=== PATIENT | male | born 1970 | race Caucasian/White ===

== ENCOUNTER 2020-09-14 14:23 | Outpatient (RCR) | payer MEDICAID, SELFPAY | END 2020-11-27 23:59 | LOC: IMMUN 14:23 | PROVIDERS: PCP Family Medicine; Referring Provider Family Medicine; Visit Provider Family Medicine | DX: Z23 Encounter for immunization (principal) | CPT/HCPCS: 0001A; 0002A; 91300 ==

== ENCOUNTER → 2021-03-02 07:35 | Outpatient (CLI) | payer SELFPAY | PROVIDERS: PCP Family Medicine; Referring Provider Physician Assistant Surgical; Visit Provider Physician Assistant Surgical | DX: Z11.52 Encounter for screening for COVID-19 (principal) | CPT/HCPCS: 87635; U0005; U0003 ==

== ENCOUNTER 2021-08-27 10:18 | Outpatient (CLI) | payer OTHER, SELFPAY ==
[2021-08-27 12:23] LABS: Absolute Lymphocyte Count 1.46 X10^3/uL (0.83-4.51); Absolute Neutrophil Count 3.2 X10^3/uL (2.0-7.7); Basophil# 0.04 X10^3/uL; Basophil% 0.8 % (0-1); Eosinophil# 0.05 X10^3/uL; Hematocrit 44.6 % (40-54); Hemoglobin 15.3 g/dL (13.0-16.5); Lymphocyte # 1.46 X10^3/ul (0.83-4.51); Lymphocyte % 28.1 % (19-41); Mean Corp Hgb Conc 34.3 g/dL (32-36); Mean Corpuscular Volume 90.3 fL (80-94); Monocyte% 7.7 % (0-10); NRBC Flagged by Analyzer 0 % (0-5); Neutrophil # 3.23 X10^3/uL (2.7-7.7); Platelet Count 194 K/mm3 (150-450); RBC Distribution Width CV 12.2 % (11.6-14.6); RBC Distribution Width SD 39.9 fl (35.1-43.9); Red Blood Count 4.94 M/mm3 (4.6-6.2); White Blood Count 5.2 K/mm3 (4.4-11.0)
[2021-08-27 12:39] LABS: AST(SGOT) 22 U/L (15-37); Alanine Aminotransfer ALT/SGPT 27 U/L (16-61); Albumin, Serum 3.7 g/dL (3.2-5.0); Alkaline Phosphatase 71 U/L (45-117); Anion Gap 1 (5-15); BUN 20 mg/dL (7-18); Calcium,Total 9.5 mg/dL (8.5-10.1); Chloride 104 mmol/L (98-107); Creatinine, Serum 1.05 mg/dL (0.70-1.30); EST Glomerular Filtration Rate 79 mL/min (>60); Est Glom Filt Rate - Afr Amer 96 mL/min (>60); Globulin 3.9 g/dL (2.2-4.2); Glucose 102 mg/dL (74-106); Potassium 4.3 mmol/L (3.5-5.1); Protein, Total 7.6 g/dL (6.4-8.2); Sodium Level 138 mmol/L (136-145)
[2021-08-27 13:14] LABS: Hepatitis B Surface Antibody Non-Reactive; Hepatitis B Surface Antigen Non-Reactive (Nonreactive); Hepatitis C Antibody Non-Reactive (Nonreactive)
[2021-08-30 03:07] LABS: QNTFERON TB Mitogen Value > 10.00 IU/mL (.); QNTFERON TB Nil Value 0.04 IU/mL (.); QNTFERON TB1+ Ag Value 0.04 IU/mL (.); QNTFERON TB2+ Ag Value 0.05 IU/mL (.)
[2021-08-30 13:50] LABS: Hepatitis B Core Ab Total Negative (Negative); QNTIFERON TB Positive Criteria Negative (Negative)
== END 2021-08-27 23:59 | disposition home or self-care (01) ==
LOC: MTLAB 10:21
PROVIDERS: Referring Provider Dermatology; Visit Provider Dermatology
DX: L40.0 Psoriasis vulgaris (principal); C44.91 Basal cell carcinoma of skin, unspecified; Z79.899 Other long term (current) drug therapy
CPT/HCPCS: 36415; 80048; 80076; 85025; 86480; 86704; 86706; 86803; 87340

== ENCOUNTER → 2022-11-27 | Outpatient (CLI) | payer OTHER, SELFPAY ==
--- NOTE | 2022-11-27 09:23 | RAD_ITS ---
STUDY: X-RAY CHEST REASON FOR EXAM: Male, 52 years old. Right anterior chest pain/rib pain. TECHNIQUE: PA and lateral views of the chest. COMPARISON: None. FINDINGS: Mild increased markings in the lower aspect of the right lung base. Atelectasis and/or early infiltrate should be ruled out. Follow-up recommended. There is no demonstrated pleural abnormality. Normal size heart. Normal mediastinum and roosevelt. Normal visualized pulmonary arteries. Normal visualized aortic arch and descending thoracic aorta. Normal visualized thoracic spine. Normal visualized ribs, clavicles, and shoulders. There is no demonstrated abnormality of the visualized soft tissue structures of the upper abdomen. RAD/Chest PA and Lateral IMPRESSION: Mild increased markings at the right lung base. Follow-up recommended. Electronically Signed: Tushar Canada MD at 13:00 EDT ,
[2022-11-27 12:25] LABS: Absolute Lymphocyte Count 1.48 X10^3/uL (0.83-4.51); Basophil# 0.08 X10^3/uL; Basophil% 1.5 % (0-1); Eosinophil# 0.14 X10^3/uL; Eosinophils% 2.7 % (0-5); Hematocrit 41.9 % (40-54); Hemoglobin 13.9 g/dL (13.0-16.5); Lymphocyte # 1.48 X10^3/ul (0.83-4.51); Lymphocyte % 28.5 % (19-41); Mean Corp Hgb Conc 33.2 g/dL (32-36); Mean Corpuscular Hgb 30.2 pg (27.0-32.0); Mean Corpuscular Volume 90.9 fL (80-94); Mean Platelet Vol. 9.9 fl (6.2-12.0); Monocyte# 0.47 X10^3/uL; Monocyte% 9.1 % (0-10); NRBC Flagged by Analyzer 0 % (0-5); Neutrophil # 3.01 X10^3/uL (2.7-7.7); Platelet Count 266 K/mm3 (150-450); RBC Distribution Width CV 12.1 % (11.6-14.6); RBC Distribution Width SD 40.1 fl (35.1-43.9); Red Blood Count 4.61 M/mm3 (4.6-6.2); White Blood Count 5.2 K/mm3 (4.4-11.0)
[2022-11-27 12:45] LABS: ALB/GLOB Ratio 0.8 RATIO (0.9-2.4); AST(SGOT) 27 U/L (15-37); Alanine Aminotransfer ALT/SGPT 36 U/L (16-61); Albumin, Serum 3.4 g/dL (3.2-5.0); Alkaline Phosphatase 73 U/L (45-117); Anion Gap 6 (5-15); BUN 18 mg/dL (7-18); BUN/Creat Ratio 16.7 RATIO (10-20); Calcium,Total 9.4 mg/dL (8.5-10.1); Chloride 103 mmol/L (98-107); Cholesterol 243 mg/dL (200); Creatinine, Serum 1.08 mg/dL (0.70-1.30); EST Glomerular Filtration Rate 76 mL/min (>60); Est Glom Filt Rate - Afr Amer 92 mL/min (>60); Globulin 4.3 g/dL (2.2-4.2); Glucose 98 mg/dL (74-106); High Density Lipoprotein 67 mg/dL; Potassium 4.2 mmol/L (3.5-5.1); Protein, Total 7.7 g/dL (6.4-8.2); Sodium Level 138 mmol/L (136-145); Triglycerides 56 mg/dL; Very Low Density Lipoprotein 11 mg/dL (5-40)
== END | disposition home or self-care (01) ==
PROVIDERS: PCP Family Medicine; Referring Provider Family Medicine; Visit Provider Family Medicine
DX: Z00.00 Encounter for general adult medical examination without abnormal findings (principal); Z13.220 Encounter for screening for lipoid disorders; Z13.1 Encounter for screening for diabetes mellitus; R07.81 Pleurodynia
CPT/HCPCS: 36415; 71046; 80053; 80061; 85025

== ENCOUNTER → 2022-12-09 | Outpatient (CLI) | payer OTHER, SELFPAY ==
[2022-12-09 12:43] LABS: HIV - WCH Non-Reactive (Nonreactive); Hepatitis C Antibody Non-Reactive (Nonreactive)
[2022-12-10 22:06] LABS: Chlamydia By Nucleic Acid AMP Negative (Negative); Gonococcus By Nucleic Acid AMP Negative (Negative)
== END | disposition home or self-care (01) ==
LOC: MFPLAB 08:38
PROVIDERS: PCP Family Medicine; Visit Provider Family Medicine
DX: Z11.59 Encounter for screening for other viral diseases (principal); Z20.2 Contact with and (suspected) exposure to infections with a predominantly sexual mode of transmission; Z11.4 Encounter for screening for human immunodeficiency virus [HIV]
CPT/HCPCS: 36415; 86703; 86803; 87491; 87591

== ENCOUNTER 2023-05-21 15:04 | Outpatient (RCR) | payer OTHER, SELFPAY ==
--- NOTE | 2023-05-21 15:51 | HP.PTEVAL_ITS ---
Patient's Visit Information Visit Information Visit Information: JOHNNIE MCNAMARA is a 52 year old M referred to Physical Therapy by Dr. Juan C Moody DO with a diagnosis of R trochanteric bursitis , spondylosis. Date of Evaluation: 05/21/23 Physical Therapist: Jayant Whitaker, DPT, OCS, CSCS Visit Plan Frequency: 1x/Week Duration: 4-6 Weeks Plan: weekly as needed for progression of hip strength stretching and LB ex. Pt will do current ex via HEP and f/u two weeks for progression to weight bearing hip ex if doing better adn consider LB ROM and core strength exercises if desired. Will call prior if pain does not continue to improve for possible US, STM Subjective Subjective: R hip hurts but is structurally sound. Started hurting 5 months ago getting out of truck. Stiff and sore when sits too much then works out, Tender in that area. 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 Referees basketball without a problem(back hurts a little with lots of running). Stiff after sitting in car. No trouble sleeping but cannot lie on R side. L side is fine. Basic ADLs are getting done. No time to workout and has not been for a year. Pain R hip: Pain Intensity (Out of 10): 0 Pain Intensity Range: 0 and 8 Objective Objective: Walks I, transfers I, steps without pain today. Tender R trochanteric bursa area. LB AROM WFL and no pain but a little stiff posteriorly. LE AROM WFL, tightness obvious in ITB and piriformis reflexes 2/3 patella and achilles Sensation wNL to gross light touch. strength hip abd and ext B 3+ and flexion 4-, some pain wiwth abduction. knee and ankle strength 4/5 without pain. - JEAN MARIE, - FADDIR, - slump and SLR today. Balance/Special Test Scores Lower Extremity Functional Score: 75 Goals Goal 1:: sit in truck adn get out without increased pain Goal Time Frame: 4-6 Weeks Goal 2:: Pt feel pain is 90% better in hipand 1/10 at worst Goal Time Frame: 4-6 Weeks Goal 3:: I appropriate HEp to minimze future back and hip problems as desired Goal Time Frame: 4-6 Weeks Rehabilitation Potential Physical Therapy Diagnosis: inflammation in bursa are causing pain and limiting comfort with fucntion/sitting Rehabilitation Potential: Good Anticipated Interventions Patient/Client Instruction: Educate patient on: Condition and Plan of Care For the Purpose of:: To decrease pain, To decrease swelling/inflammation, To improve nutrient delivery to tissue, To improve muscle performance and motor function and To increase tolerance to activity/condition/position Therapeutic Exercise to Include: Strength training, Postural training, Flexibilty training, Passive ROM and Active ROM For the Purpose of:: To decrease pain, To decrease swelling/inflammation, To increase ROM, To improve muscle performance and motor function, To improve ability of physical actions for home/community/work/leisure and To improve gait and locomotor functions Text: Thank you for the opportunity to evaluate your patient. For Medicare and Medicare HMO plans, please review the plan of care and approve it. It will need to be FAXED BACK to us at [phone] for Medicare purposes. For Medicare only, by signing this I certify the plan of care. Please let me know if there are questions or concerns regarding this plan of care. Physician Signatu re: Date:
--- NOTE | 2023-07-06 08:04 | HP.PT.NRP ---
Patient Information Patient Information: JOHNNIE MCNAMARA was seen in my office for initial evaluation on 05/21/23. The following Plan of Care was established for this patient: POC Established Initial Frequency: 1x/Week Initial Duration: 4-6 Weeks Anticipated Interventions Patient/Client Instruction: Educate patient on: Condition and Plan of Care For the Purpose of:: To decrease pain, To decrease swelling/inflammation, To improve nutrient delivery to tissue, To improve muscle performance and motor function and To increase tolerance to activity/condition/position Therapeutic Exercise to Include: Strength training, Postural training, Flexibilty training, Passive ROM and Active ROM For the Purpose of:: To decrease pain, To decrease swelling/inflammation, To increase ROM, To improve muscle performance and motor function, To improve ability of physical actions for home/community/work/leisure and To improve gait and locomotor functions Last Seen Last Seen: This patient was last seen in our office 05/21/23. Pertinent comments regarding their Physical therapy will appear below: Pt seen for IE and POC established, was to f/u weekly for progressions but has not scheduled or attended. At this point, it has been over 6 weeks and I will discontinue due to nonattendance. At this point I will be discontinuing this patient from physical therapy. I would be happy to see this patient again in the future if found appropriate by the physician. Thank you! Jayant Whitaker, DPT, OCS, CSCS Balance/Gait/Functional tests Balance/Special Test Scores Lower Extremity Functional Score: 75
== END 2023-05-21 19:00 | disposition home or self-care (01) ==
LOC: PT 15:04
PROVIDERS: PCP Family Medicine; Referring Provider Orthopaedic Surgery; Visit Provider Orthopaedic Surgery
DX: M70.61 Trochanteric bursitis, right hip (principal); M47.816 Spondylosis without myelopathy or radiculopathy, lumbar region
CPT/HCPCS: 97110; 97161

== ENCOUNTER → 2023-06-11 | Outpatient (CLI) | payer OTHER, SELFPAY ==
[2023-06-16 12:07] LABS: Hepatitis B Core Ab Total Negative (Negative); QNTFERON TB Mitogen Value > 10.00 IU/mL (.); QNTFERON TB Nil Value 0 IU/mL (.); QNTFERON TB1+ Ag Value 0.01 IU/mL (.); QNTFERON TB2+ Ag Value 0 IU/mL (.); QNTIFERON TB Positive Criteria Negative (Negative)
== END | disposition home or self-care (01) ==
PROVIDERS: PCP Family Medicine; Referring Provider Physician Assistant Medical; Visit Provider Physician Assistant Medical
DX: L40.0 Psoriasis vulgaris (principal)
CPT/HCPCS: 36415; 86480; 86704

== ENCOUNTER 2023-11-30 08:13 | Day surgery (SDC) | payer OTHER, SELFPAY ==
[2023-11-30] VITALS (7 sets, daily range): BP systolic 109–125; BP diastolic 76–95; PULSE 58–70; RESP 16–17; TEMP 36–36.4; O2SAT 98–100; BMI 22.1
[2023-11-30] MEDS: Lactated Ringers 1,000 ML 15 ML IV (08:29)
--- NOTE | 2023-11-30 09:30 | COLBX_PTH ---
PATIENT: JOHNNIE MCNAMARA LOC: EN U#:[id number] AGE/SX: 53/M ROOM: RE11/30/[address]: Dr. Rajesh Colón DO : 1970 BED: DIS: 11/30/2023 SPEC #: [id number] RECD: 11/30/23 11:34 STATUS: NICK LUNA #: [id number] BARBARA: 11/30/23 09:[address]: Rajesh Colón DEPT: SURGICAL PATHOLOGY RECD BY: Moni Shearer ENTERED: 11/30/23 13:06 SP TYPE: COLON BX OTHR DR: Espnioza Encarnacion MD Tissues: Cecum, NOS Procedures: Surgery Specimen Level IV HEADER OPERATION: Colonoscopy biopsy PRE-OP DIAGNOSIS: Encounter for screening for malignant neoplasm of colon TISSUE SUBMITTED: Cecal polyp biopsy MICROSCOPIC DIAGNOSIS Cecal polyp, biopsy: A fragment of colonic mucosa, no pathologic diagnosis. TU/ 12/01/2023 MICROSCOPIC DESCRIPTION Slides are reviewed. GROSS DESCRIPTION Received in fixative is one container labeled with the patient's name and designated Cecal polyp. The specimen consists of one irregular fragment of light smith soft tissue that measures 0.6 x 0.4 x 0.1 cm. The specimen is totally submitted in one cassette. TU/ 11/30/2023 TC:4 CPT:00001
--- NOTE | 2023-11-30 09:39 | HP.PCM_ITS ---
[facility] - General General Date of Admission: 11/30/23 Date of Service: 11/30/23 Chief Complaint: Screening colonoscopy [facility] Narrative JOHNNIE MCNAMARA, is a 53 M who presents today for screening colonoscopy. He has not had a colonoscopy in the past. He is not having abdominal pain. Does not have any cramping. He does not have any chest pain or shortness of breath. She also denies any change in bowel bladder habits. Overall she is in very good health. [facility] Medical History (Updated 11/25/23 @ 09:54 by Kelley Harris) Loss of hearing Wears contact lenses Psoriasis Osteoarthritis of right knee Hernia Diarrhea Home Medications ?Medication ?Instructions ?Recorded ?Last Taken ?Type NK 11/25/23 Unknown History Allergy/AdvReac Type Severity Reaction Status Date / Time amoxicillin AdvReac stomach Verified 11/30/23 08:27 upset Family History Other Heart disease Surgical History Hx of right inguinal hernia repair Hx of vasectomy History of shoulder surgery History of knee surgery Social History (Updated 10/21/23 @ 11:32 by Marla Kaur) household members: spouse and children current occupational status: employed current occupation: Self Smoking Status: Never smoker alcohol intake: current alcohol intake frequency: a few times a week Alcohol type: beer details: Occasional alcohol substance use type: does not use ROS Review of Systems ROS Unobtainable: other Constitutional Constitutional: Denies fatigue, fever(s), poor appetite, weight gain or weight loss ENT HEENT: Denies mouth lesions Cardiovascular Cardiovascular: Denies abdominal bloating, abdominal edema or abdominal pain Respiratory/Chest Respiratory/Chest: Denies change in mental status, change in phlegm color, chest congestion or chest tightness Gastrointestinal Gastrointestinal: Denies belching, bloating, change in bowel habits, change in stool character, chewing difficulty, coffee ground emesis, constipation, cramping, diarrhea, dyspepsia, dysphagia, early satiety, excessive flatus, fecal incontinence, heartburn, hematemesis, hematochezia, hemorrhoids, loose stools, melena, nausea, odynophagia, rectal bleeding, tenesmus, vomiting or weight changes Genitourinary Genitourinary: Denies abdominal discomfort, burning urination or itching Musculoskeletal Musculoskeletal: Reports as per HPI; Denies muscle weakness or myalgias Integumentary Integumentary: Denies jaundice Neurologic Neurologic: Denies lack of coordination or weakness Psychiatric Psychiatric: Denies confusion, depression, memory loss, mood swings, paranoia or suicidal ideation Endocrine Endocrinology: Denies systems reviewed and no addt'l complaints, except as documented Hematologic/Lymphatic Hematologic/Lymphatic: Denies anemia, easy bleeding, easy bruising or lymphadenopathy Allergic/Immunologic Allergic/Immunologic: Denies systems reviewed and no addt'l complaints, except as documented Vital Signs Vital Signs Vital Signs: 11/30/23 08:27 11/30/23 08:27 Temperature 97.5 F L Temperature Source Temporal Pulse Rate 64 Respiratory Rate 16 Respiratory Pattern Normal Blood Pressure 125/95 H Blood Pressure Mean 105 Blood Pressure Source Monitor Blood Pressure Position Semi-Fowlers Blood Pressure Location Left Arm Pulse Ox 98 Oxygen Delivery Method Room Air Weight Weight: 163 lb 2.273 oz Body Mass Index (BMI) 22.1 Assessment & Plan Assessment/Plan (1) Encounter for screening for malignant neoplasm of colon: PLAN: He was explained alternatives, risk, benefits including not withstanding bleeding, infection, sepsis, perforation, need for emergent surgery . He will have an ASA of 3.
--- NOTE | 2023-11-30 10:17 | OP.CCLET_ITS ---
11/30/2023 Espinoza Encarnacion Md Re : Colonoscopy procedure for Sp Devi Vikir Shashank This procedure was performed on Thursday, November 30, 2023. My impressions and recommendations are as follows: Impressions : - One 3 mm polyp in the cecum, removed with a cold biopsy forceps. Resected and retrieved. - The examination was otherwise normal on direct and retroflexion views. Recommendations : - Discharge patient to home. - Resume previous diet. - Continue present medications. - Await pathology results. - Repeat colonoscopy in 5 years for surveillance. My findings are described in the full procedure note, which is enclosed. If I can be of further assistance, please feel free to contact me at . Sincerely, Rajesh Colón, 11/30/2023 10:16:23 AM This report has been signed electronically.
--- NOTE | 2023-11-30 10:17 | OP.COLON_ITS ---
Patient Name: Sp Devi Procedure Date: 11/30/2023 9:41 AM Date of : 1970 Age: 53 Procedure: Colonoscopy Indications: Screening for colorectal malignant neoplasm Providers: Rajesh Colón DO Referring MD: Espinoza Encarnacion Md Medicines: Monitored Anesthesia Care Patient Profile: This is a 53 year old male. Refer to note in patient chart for documentation of history and physical. Last Colonoscopy: none. The patient's first colonoscopy is today. Complications: No immediate complications. Procedure: Pre-Anesthesia Assessment: - Prior to the procedure, a History and Physical was performed, and patient medications and allergies were reviewed. The patient is competent. The risks and benefits of the procedure and the sedation options and risks were discussed with the patient. All questions were answered and informed consent was obtained. Patient identification and proposed procedure were verified by the physician in the pre-procedure area. Mental Status Examination: alert and oriented. Airway Examination: normal oropharyngeal airway and neck mobility. Respiratory Examination: clear to auscultation. CV Examination: normal. Prophylactic Antibiotics: The patient does not require prophylactic antibiotics. Prior Anticoagulants: The patient has taken no anticoagulant or antiplatelet agents. ASA Grade Assessment: II - A patient with mild systemic disease. After reviewing the risks and benefits, the patient was deemed in satisfactory condition to undergo the procedure. The anesthesia plan was to use monitored anesthesia care (MAC). Immediately prior to administration of medications, the patient was re-assessed for adequacy to receive sedatives. The heart rate, respiratory rate, oxygen saturations, blood pressure, adequacy of pulmonary ventilation, and response to care were monitored throughout the procedure. The physical status of the patient was re-assessed after the procedure. After I obtained informed consent, the scope was passed under direct vision. Throughout the procedure, the patient's blood pressure, pulse, and oxygen saturations were monitored continuously. The Colonoscope was introduced through the anus and advanced to the cecum, identified by appendiceal orifice and ileocecal valve. The colonoscopy was performed without difficulty. The patient tolerated the procedure well. The quality of the bowel preparation was adequate. The terminal ileum, ileocecal valve, appendiceal orifice, and rectum were photographed. Scope In: 9:51:32 AM Scope Withdrawal Time 0 hours 6 minutes 59 seconds Scope Out: 10:03:03 AM Total Procedure Duration Time 0 hours 11 minutes 31 seconds Findings: The perianal and digital rectal examinations were normal. A 3 mm polyp was found in the cecum. The polyp was sessile. The polyp was removed with a cold biopsy forceps. Resection and retrieval were complete. Verification of patient identification for the specimen was done. Estimated blood loss was minimal. The exam was otherwise without abnormality on direct and retroflexion views. Impression: - One 3 mm polyp in the cecum, removed with a cold biopsy forceps. Resected and retrieved. - The examination was otherwise normal on direct and retroflexion views. Recommendation: - Discharge patient to home. - Resume previous diet. - Continue present medications. - Await pathology results. - Repeat colonoscopy in 5 years for surveillance. Procedure Code(s): --- Professional --- 02095, Colonoscopy, flexible; with biopsy, single or multiple CPT copyright 2021 [employer]. All rights reserved. The codes documented in this report are preliminary and upon cream beater review may be revised to meet current compliance requirements. Rajesh Colón DO 11/30/2023 10:16:23 AM This report has been signed electronically. Number of Addenda: 0 Note Initiated On: 11/30/2023 9:41 AM
== END 2023-11-30 10:44 | disposition home or self-care (01) ==
LOC: EN 08:14 → AC 08:15
PROVIDERS: PCP Family Medicine; Referring Provider Family Medicine; Visit Provider Internal Medicine Gastroenterology
PROC: 0DJD8ZZ Inspection of Lower Intestinal Tract, Via Natural or Artificial Opening Endoscopic (ICD-10-PCS; CPT 45378; principal; 2023-11-30 09:25)
DX: Z12.11 Encounter for screening for malignant neoplasm of colon (principal); K63.5 Polyp of colon
CPT/HCPCS: 45380; 88305; J7120; J2405

== ENCOUNTER → 2024-02-04 | Outpatient (CLI) | payer OTHER, SELFPAY ==
--- NOTE | 2024-02-04 10:11 | RAD_ITS ---
STUDY: X-RAY - CERVICAL SPINE REASON FOR EXAM: Male, 53 years old. Neck pain. TECHNIQUE: 5 view(s) of the cervical spine were obtained. COMPARISON: None FINDINGS: Osteopenia. Normal anterior atlantoaxial articulation. Normal odontoid process. Normal cervical lordosis. Diffuse moderate uncovertebral and facet sclerosis. Normal alignment of the vertebral bodies. Intervertebral disc space narrowing at C2-3 and C5-6 and C6-7 with osteophytes most marked at C5-6 and C6-7. Anterior bony neural foraminal encroachment at C5-6 bilaterally. Ossification of the ligamentum nuchae distally. RAD/Cerv Spine 4 or 5 Views IMPRESSION: Osteopenia with moderate lower cervical spondylosis. Electronically Signed: Juan Johnson MD at 12:21 EDT ,
== END | disposition home or self-care (01) ==
PROVIDERS: PCP Family Medicine; Referring Provider Family Medicine; Visit Provider Family Medicine
DX: R20.2 Paresthesia of skin (principal)
CPT/HCPCS: 72050

== ENCOUNTER → 2024-06-30 | Outpatient (CLI) | payer OTHER, SELFPAY ==
--- NOTE | 2024-06-30 06:56 | CT_ITS ---
STUDY: CT ABDOMEN AND PELVIS WITH CONTRAST REASON FOR EXAM: Male, 53 years old. Possible left inguinal hernia. RADIATION DOSAGE (If Supplied By Facility): CTDIvol = ( 14.22 ) mGy, DLP = ( 755.66 ) mGycm TECHNIQUE: Transaxial images were obtained from the dome of the diaphragm to the symphysis pubis without oral contrast. IV 100mL Isovue-370 was administered. Sagittal and coronal images were reconstructed. Individualized dose optimization techniques were used for this CT. COMPARISON: None. FINDINGS: The visualized lung bases are unremarkable. The visualized portions of the heart are within normal limits. Findings suggestive of a 3.6 cm x 3.4 cm hemangioma in the posterior medial aspect of the right lobe liver. Normal gallbladder and extrahepatic biliary system. Normal spleen. Normal pancreas. Normal bilateral adrenal glands. Normal right kidney. Normal left kidney. Normal visualized stomach. Normal small intestine. Normal colon. The appendix is visualized and appears normal. Normal abdominal aorta. Normal inferior vena cava. Normal retroperitoneum. Normal urinary bladder. There is evidence of prior right inguinal hernia repair with a mesh. Small left inguinal hernia containing fat. Normal osseous structures. CT/Abdomen/Pelvis W IV Cont ONLY IMPRESSION: Findings suggestive of a hemangioma in the posterior medial aspect of the right lobe of the liver as described. Small left inguinal hernia containing fat. Prior repair of a right inguinal hernia with a mesh. Electronically Signed: Tushar Canada MD at 15:28 EST ,
== END | disposition home or self-care (01) ==
PROVIDERS: PCP Family Medicine; Referring Provider Family Medicine; Visit Provider Family Medicine
DX: K46.9 Unspecified abdominal hernia without obstruction or gangrene (principal)
CPT/HCPCS: 74177; Q9967

== ENCOUNTER 2024-07-07 08:03 | Outpatient (RCR) | payer OTHER, SELFPAY ==
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
== END 2024-07-07 19:00 | disposition home or self-care (01) ==
LOC: PT 08:03
PROVIDERS: PCP Family Medicine; Referring Provider Student in an Organized Health Care Education/Training Program; Visit Provider Student in an Organized Health Care Education/Training Program
DX: M54.12 Radiculopathy, cervical region (principal)
CPT/HCPCS: 97162; 97530

== ENCOUNTER 2024-08-08 05:55 | Day surgery (SDC) | payer OTHER, SELFPAY ==
--- NOTE | 2024-07-25 07:45 | EKG12_ITS ---
Test Reason : PREOP Blood Pressure : */* mmHG Vent. Rate : 63 BPM Atrial Rate : 63 BPM P-R Int : 170 ms QRS Dur : 88 ms QT Int : 400 ms P-R-T Axes : 60 58 46 degrees QTcB Int : 409 ms Normal sinus rhythm Normal ECG Confirmed by PEGGY COLLINS, KELYL ([id number]), editorial director CHALINO OLVERA ([id number]) on 07/25/2024 10:43:22 AM Referred By: Jose Charlton Confirmed By: KELLY WOODS MD
[2024-08-08] VITALS (12 sets, daily range): BP systolic 116–124; BP diastolic 81–91; PULSE 66–74; RESP 12–20; TEMP 36.1–36.4; O2SAT 95–100; BMI 23.6
[2024-08-08] MEDS: 0.9% Normal Saline (1000mL) 1,000 ML 15 ML IV ×2 (06:35→09:25)
--- NOTE | 2024-08-08 06:42 | PCM.PRE.AN2 ---
ASA Classification* ASA Classification ASA Classification: 2 Assessment & Plan Anesthesia* Anesthesia Assessment Anesthesia Assessment: Discussed sedation and/or anesthesia options, risks, benefits, and alternatives with patient/parents/legal guardian/POA. Questions invited. The patient/parents/legal guardian/POA seems to understand and agrees to proceed with anesthesia plan. Reviewed the physical assessment, medical history, allergy history and patient home medications list prior to surgery/procedure/anesthetic and documented any changes. Performed airway and anesthesia risk assessments. Anesthesia Type Anesthesia Type: General Anesthesia Focused Assessment* Temperature: 97.0 F Pulse Rate: 66 Blood Pressure: 123/85 Respiratory Rate: 12 Pulse Ox: 99 Airway Assessment Mouth opens: >3 cm Mallampati Score: II Focused Labs Anesthesia Preop lab: CBC WBC 5.2 K/mm3 (4.4-11.0) 11/27/22 09:21 11/27/22 RBC 4.61 M/mm3 (4.6-6.2) 11/27/22 09:11/27/22 Hgb 13.9 g/dL (13.0-16.5) 11/27/22 09:21 11/27/22 Hct 41.9 % (40-54) 11/27/22 09:21 11/27/22 Plt Count 266 K/mm3 (150-450) 11/27/22 09:21 11/27/22 CHEMISTRY Potassium 4.2 mmol/L (3.5-5.1) 11/27/22 09:21 11/27/22 Sodium 138 mmol/L (136-145) 11/27/22 09:21 11/27/22 BUN 18 mg/dL (7-18) 11/27/22 09:21 11/27/22 Creatinine 1.08 mg/dL (0.70-1.30) 11/27/22 09:21 11/27/22 Glucose 98 mg/dL (74-106) 11/27/22 09:21 11/27/22 COAG Pre-Assessment Diagnosis/Proposed Procedure Planned Operative Procedure(s): (L) Hernia,Open Inguinal w/ Mesh Anesthesia History Anesthesia History - english and reading instructor: Anesthesia History - english and reading instructor Hx Hospitalization No 07/22/24 11:14 Any Problems With Anesthesia No 07/22/24 11:14 Cholinesterase deficiency No 07/22/24 11:14 You/Your Family Experience No 07/22/24 11:14 fever (hyperthermia) with Relationship Recent Exposure to Contagious No 08/08/24 06:27 Disease Does patient have nerve No 07/22/24 11:14 stimulator Patient instructed to have device shut off --Does patient have Pacemaker No 08/08/24 06:27 or ICD? When Was Last Pacemaker Check QUESTION #4 FULL TEXT: You/Your Family Experience fever (hyperthermia) with Anesthesia Last Oral Intake Last Oral intake: Last Oral Intake NPO since 22:00 08/08/24 06:27 Meds taken in AM with sips of No 08/08/24 06:27 water? Meds patient instructed to take am of surgery PONV PONV - english and reading instructor: PONV - english and reading instructor Female No 07/22/24 11:14 HX of Motion Sickness No 07/22/24 11:14 HX of N/V After Surgery No 07/22/24 11:14 Non-Smoker Yes 07/22/24 11:14 Duration of Surgery greater Yes 07/22/24 11:14 than 60 minutes Number of Risk Factors 2 07/22/24 11:14 PONV Score Moderate Risk 07/22/24 11:14 Height & Weight Height & Weight: Anesthesia: Height & Weight Height 6 ft 08/08/24 06:27 Weight: 78.8 kg 08/08/24 06:27 Body Mass Index (BMI) 23.6 08/08/24 06:27 Respiratory Assessment Respiratory Assessment - english and reading instructor: Respiratory Tract Infection Hx - english and reading instructor Hx Respiratory Tract Infection No 07/22/24 11:14 STOP Sleep Apnea STOP Sleep Apnea - english and reading instructor: STOP Sleep Apnea - english and reading instructor Hx Hypertension No 07/22/24 11:14 Hx Sleep Apnea No 07/22/24 11:14 CPAP BIPAP Do you snore loudly (louder No 07/22/24 11:14 than talking or can be heard Do you often feel tired/ No 07/22/24 11:14 fatigued/ sleepy during daytime? Has anyone observed you stop No 07/22/24 11:14 breathing during sleep? STOP Results Negative 07/22/24 11:14 QUESTION #5 FULL TEXT : Do you snore loudly (louder than talking or can be heard through closed doors)? Tobacco Use History Tobacco Use History - english and reading instructor: Tobacco Use History - english and reading instructor Tobacco Use Smoking Status Never smoker 07/22/24 11:14 Hx Tobacco Use No 07/22/24 11:14 Years Smoking Packs Smoked per Day Smoking Cessation Date was within the last 15 years Hx Smoking Cessation Date Hx Smoking Cessation Counseling Hematologic Medial History Hematologic Hx - english and reading instructor: Hematologic Medical Hx - warehouse distribution specialist Hx of Blood Transfusion No 07/22/24 11:14 Hx of Transfusion in last 3 No 07/22/24 11:14 Months Date of Last Transfusion (if within last 3 months) Ever experience any problems No 07/22/24 11:14 with transfusion(s)? Specify any problems Hx of Preganancy in last 3 N/A 07/22/24 11:14 Months Nurse Filling Out Transfusion MGRIFFITH 07/22/24 11:14 & Questions: Date: 07/22/24 07/22/24 11:14 Time: 11:18 07/22/24 11:14 Patient unable to answer at this time (ie. confused, unrespo /Reproduction History /Reproductive History - english and reading instructor: /Reproductive Hx- english and reading instructor Hx Now Gestational Age (in weeks): EDC: Hx Hx Para Hx Section SAB No 07/07/24 09:18 Active Medications Active Medications: Current Medications Generic Name Dose Route Start Last Admin Trade Name Freq PRN Reason Stop Dose Admin Clindamycin Phosphate 900 mg in 50 mls @ 75 mls/hr 08/08/24 07:30 Cleocin IV 08/08/24 08:09 PREOP ONE Sodium Chloride 1,000 mls @ 15 mls/hr 08/08/24 06:10 08/08/24 06:35 IV 08/13/24 19:29 15 mls/hr .Q48H HAVEN Administration Protocol [facility] Medical History Postoperative urinary retention Wears glasses Cancer Non-smoker Loss of hearing Osteoarthritis of right knee Hernia Diarrhea Home Medications ?Medication ?Instructions ?Recorded ?Last Taken ?Type ibuprofen 200 mg capsule (Advil 200 mg PO Q6H PRN pain 06/21/24 08/01/24 History Liqui-Gel) omega 0-oom-ebv-fish oil 60 mg-90 1 cap PO QDAY 07/14/24 07/31/24 History mg-500 mg capsule (Fish Oil) fexofenadine-pseudoephedrine ER 1 tab PO DAILY 07/22/24 08/07/24 History 180 mg-240 mg tablet,ext.release 24 hr (Ava-D 24 Hour) Allergy/AdvReac Type Severity Reaction Status Date / Time amoxicillin AdvReac stomach Verified 07/22/24 11:12 upset Family History Father Heart disease Mother Heart disease Surgical History History of colonoscopy History of surgery Hx of right inguinal hernia repair Hx of vasectomy History of shoulder surgery History of knee surgery Social History household members: spouse and children current occupational status: employed current occupation: Self Smoking Status: Never smoker alcohol intake: current alcohol intake frequency: a few times a week Alcohol type: beer details: Occasional alcohol substance use type: does not use Review of Systems (Anesthesia) ROS Narrative System reviewed and no additional complaints, except as documented.
--- NOTE | 2024-08-08 07:06 | HP.PCM_ITS ---
History and Physical Date of Admission: 08/08/24 Intake Vital Signs 06/21/2415:07 07/07/2508:18 07/14/2514:21 Height 6 ft 6 ft 6 ft Weight: 173 lb BMI 23.4 BP 123/89 H Blood Pressure Location Rt brachial Position Sitting Respiration 17 Pulse 78 Pulse Source Monitor Temp 97.4 F L Temp Source Temporal Pulse Oximetry (%) 98 Oxygen Delivery Method room air Intake Visit Reasons: L INGUINAL HERNIA Chief Complaint: left inguinal hernia Is patient in pain?: Yes Allergies amoxicillin Adverse Reaction (Verified 07/14/24 15:22) stomach upset Medications ?Medication ?Instructions ?Recorded ?Confirmed ?Type ibuprofen 200 mg capsule (Advil 200 mg PO Q6H PRN 06/21/24 07/14/24 History Liqui-Gel) omega 9-rjo-ebz-fish oil 60 mg-90 1 cap PO QDAY 07/14/24 07/14/24 History mg-500 mg capsule (Fish Oil) PFSH Medical History Loss of hearing Wears contact lenses Psoriasis Osteoarthritis of right knee Hernia Diarrhea Surgical History Hx of right inguinal hernia repair Hx of vasectomy History of shoulder surgery History of knee surgery Family History (Updated 07/14/24 @ 15:21 by Kathy Chilel) Father Heart diseaseMother Heart disease Social History household members: spouse and children current occupational status: employed current occupation: Self Smoking Status: Never smoker alcohol intake: current alcohol intake frequency: a few times a week Alcohol ty pe: beer details: Occasional alcohol substance use type: does not use HPI HPI HPI: Patient is a 53-year-old male with left inguinal hernia. The patient has had a right inguinal hernia repair in the past. Patient reports that he is having bulging and pain for the last 3 to 6 months. He did have a CT scan that revealed his left inguinal hernia ROS General General: No weight change, appetite, fatigue, colon cancer, breast cancer or weakness HEENT HEENT: Yes eye surgery; No difficulty swallowing, eye injury, swollen glands or hoarseness Endo Endocrine: No thyroid disease, diabetes mellitus, thyroid cancer, Hair loss, heat intolerance or cold intolerance Skin Skin: No rash or changing moles Musc Musculoskeletal: Yes back problems and arthritis; No rheumatoid arthritis, gout or joint pain Cardio Cardiovascular: No murmur, pacemaker, heart disease, atrial fibrillation, high blood pressure, heart attack, heart stent, palpitations, shortness of breat with exertion or chest pain Psych Psychiatric: No depression, anxiety or hearing voices Resp Respiratory: No shortness of breath, No sleep apnea, No cough, No COPD, No asthma, No emphysema and No wheezing Gastro Gastrointestinal: Yes abdominal pain, No nausea or vomiting, No diarrhea, No constipation, No blood in stool, No acid reflux, No hemorrhoids, No ulcers, No gallbladder problem and No black,tarry stools Marc Hematologic: No blood thinners, No blood disorders, No bleeding, No anemia and No blood clots Neuro Neurologic: No system reviewed and no additional complaints, except as documented, No as per HPI, No abnormal gait, No abnormal hearing, No abnormal movements, No abnormal speech, No behavioral changes, No burning sensations, No confusion, No convulsions, No disequilibrium, No dizziness, No localized weakness, No frequent falls, No headache(s), No lack of coordination, No loss of vision, No memory loss, No numbness, No other visual disturbances, No radicular pain, No restless legs, No sensory deficit, No syncope, No tingling, No tremor(s), No weakness and No other Exam Const General: cooperative Orientation: alert and oriented x3 HENAR Head: normal to inspection Neck Neck: normal visual inspection and full ROM Chest Chest palpation & inspection: normal inspection of the chest Resp Effort & Inspection: normal respiratory effort Auscultation: clear to auscultation bilaterally Cardio Rate: regular rate Rhythm: regular rhythm GI Inspection: non-distended Palpation: soft, hernia direct inguinal on the left and nontender Skin General: no rashes or lesions noted Neuro General: patient alert and patient oriented x3 Extrem General: full ROM Psych Appearance: grossly normal Mental Status: mental status grossly normal Assessment and Plan Assessment and Plan (1) Left inguinal hernia: Status: Acute Plan: Patient has a small left inguinal hernia which appears to be direct. I reviewed his CAT scan I recommend open left inguinal hernia repair as his mesh from his right laparoscopic inguinal repair extends all the way to the left side to just medial to the hernia. I do not believe I would get adequate coverage circumferentially because of the tack down mesh. I would recommend open repair with onlay mesh. I discussed this with the patient in detail including the risks of bleeding, infection, chronic groin pain, injury to the testicle or testicle blood supply. Patient understands the risks and is willing to proceed. Jose Charlton MD Pager: [facility] [address] [place] [address], [address] [place] [address] Office: I have examined the patient and the H&P has been reviewed. There are no clinical changes since date of exam.
[2024-08-08] MEDS: Clindamycin 900 MG/50 ML BAG 75 MG IV (07:26)
--- NOTE | 2024-08-08 07:30 | HERN_PTH ---
PATIENT: JOHNNIE MCNAMARA [place] [facility] [place][id number] AGE/SX: 53/M ROOM: RE08/08/[address]: Dr. Jose Charlton MD : 1970 BED: DIS: 08/08/2024 SPEC #: [id number] RECD: 08/08/24 09:55 STATUS: NICK CARRASCO #: [id number] BARBARA: 08/08/24 07:[address]: Jose Charlton DEPT: SURGICAL PATHOLOGY RECD BY: Curtis Ramos ENTERED: 08/08/24 11:18 SP TYPE: Hernia OTHR DR: Espinoza Encarnacion MD Tissues: HERNIA Procedures: Surgery Specimen Level II HEADER OPERATION: Hernia, open inguinal with mesh PRE-OP DIAGNOSIS: Left inguinal hernia TISSUE SUBMITTED: Left inguinal hernia sack MICROSCOPIC DIAGNOSIS Left inguinal hernia sac: Tissue from hernia repair. 08/09/2024 MICROSCOPIC DESCRIPTION Slides are reviewed. GROSS DESCRIPTION Received in fixative is one container labeled with the patient's name and designated Left inguinal hernia sac. The specimen consists of an irregular piece of smith soft tissue measuring 2.5 x 1.5 x 0.2cm. The entire specimen is submitted in one cassette. 08/08/2024 TC:4 CPT:83850
[2024-08-08] MEDS: Bupiv/Epi 0.25% 30 ML Vial (08:11)
--- NOTE | 2024-08-08 08:34 | PCM.POST.ANE ---
Anesthesia: Postop Eval I Current Vital Signs Temperature: 97.6 F Pulse Rate: 74 Blood Pressure: 122/85 Respiratory Rate: 20 Pulse Ox: 97 (4l/min O2 with face mask ) Assessment Airway patent: Yes Spontaneous unlabored respirations: Yes nausea: No Vomiting: No Anesthesia Complication: No Fluid Hydration Crystalloid volume administer (ml): 900 Total IV fluid infused: 900 Progress Note Anesthesia document: Postop Eval 1 completed: Yes
--- NOTE | 2024-08-08 08:42 | PCM.OPRPT ---
Operative Report (Standard) Operative Information Date of Procedure: 08/08/24 Pre-Operative Diagnosis: Left inguinal hernia Post-Operative Diagnosis: Left inguinal hernia Surgery/Procedure Performed: Left inguinal hernia repair with mesh clinical nursing intern: Yes Mortgage Protection Specialist: Madhuri Gonzalez Tasks completed by airline pilot/first officer: Opening, Closing and Retracting Type of Anesthesia: General/Regional RN Documented Start/Stop Times: Operation Date: 08/08/24 07:30 Case Time Into Pre-Op 08/08/24 06:07 Out of Pre-Op 08/08/24 07:23 Anesthesia Start 08/08/24 07:26 Into Room 08/08/24 07:26 Procedure Start 08/08/24 07:42 Procedure End 08/08/24 08:18 Anesthesia End 08/08/24 08:28 Out of Room 08/08/24 08:28 Into Recovery 08/08/24 08:30 Procedure Start Time: 07:42 Procedure Stop Time: 08:18 Select all DRAINS/GRAFTS/IMPLANTS that apply: Prosthetic device Prosthetic device details: Keyhole mesh Estimated Blood Loss: 5 Specimen collected: Yes Description of specimen(s) removed: Hernia sac Description of surgery: Patient was brought to the operating room and general anesthesia was induced. The left groin was prepped and draped in usual sterile fashion. Skin incision was marked and then injected with local anesthetic. Incision was incised and a large vein was encountered which was suture-ligated. Divided. The external aponeurosis was encountered and a small incision was made with a scalpel. Hemostats were used to Diareze the edges and then a scissors were used to open the external aponeurosis. The inguinal cord was identified and surrounded with a Molina drain and elevated. The floor of the inguinal region appeared to have a direct inguinal hernia. The patient also had an indirect hernia sac encountered in the cord. It was dissected free. It was opened and all its contents were reduced and then it was suture-ligated using 0 silk suture and the distal hernia sac was amputated and sent for pathology. The hernia sac was allowed to reduce. Next a keyhole mesh was tacked to the pubic tubercle using 2-0 PDS suture. In the same fashion using interrupted 2-0 PDS sutures the mesh was tacked to the shelving portion inguinal ligament laterally and to the conjoined tendon medially. The tails of the mesh were wrapped around the spermatic cord and then sutured together. They were tucked under the external aponeurosis. The Linden was removed and the inguinal region was then irrigated and suctioned dried. The ilioinguinal nerve was placed over the mesh and then the external aponeurosis was reapproximated using a running 3-0 Vicryl suture. The subcutaneous tissue was reapproximated using interrupted 3-0 Vicryl sutures. The skin was injected once more with local anesthetic and closed with a running 4-0 Monocryl. Dermabond was applied. The scrotum was checked in the end of the case and contain both testicles. Patient was awoken and taken to PACU in stable condition tolerated the procedure well. Surgical Findings: Left inguinal hernia Complications Complications: No Admit VTE Documentation VTE Mechan Device Prophylaxis: SCD's
--- NOTE | 2024-08-08 08:48 | EX.PCM.DISCH ---
Discharge Instructions Procedure Hernia Diet Discharge Diet: Light diet - advance as tolerated Activity Discharge Activity: May Not Drive (for 2-3 days or while taking narcotic pain meds.) and May Shower (with the bandage in place 1-2 days after surgery.) Lifting Restrictions: 20 pounds for 6 weeks. Additional Activity Instructions:: Climbing stairs is fine, walking is encouraged. Sitting in bed may be uncomfortable. Sitting up using your lateral muscles (sitting up sideways) is usually more comfortable. Do not drive, work heavy equipment of sign legal documents for 24 hours. If your hernia repair was an inguinal repair, you may have scrotal swelling, an ice pack and/or athletic support can provide more comfort. Pain medications may cause nausea, you should typically eat light foods as you take your pain medications. Pain medications may also cause constipation. If you have difficulty with this, discuss with your doctor. Alternate ibuprofen and Tylenol for pain control, oxycodone for breakthrough pain. Dressing / Incision Call your doctor if your incision/area has: Continuous Slow Oozing, Sudden Increased Bleeding, Increased Pain/ Swelling, Increased Redness and Foul Smelling Discharge Call your doctor if you observe: Fever of 101 or Higher Suture Line Care: Avoid Pulling/Pushing and Avoid Pinching/Bending Remove Dressing in: 2 days (Remove clear bandages in 2 days, remove Steri-Strips in 7 to 10 days.) Follow Up Care Please Follow Up With: Jose Charlton MD When: Please call to schedule 2 week follow up appointment. [phone] Test Results: Test results from this visit will be discussed in further detail at your follow-up appointment, if applicable. Discharge Plan Admission Attending Provider: Jose Charlton Primary Care Provider: Espinoza Encarnacion Instructions Print Language: Lebanese Discharge Orders/Prescriptions Prescriptions: New oxycodone 5 mg Tablet 5 - 10 mg PO Q4H PRN PRN (Reason: Pain Score 4-10) 5 Days Qty: 20 0RF No Action ibuprofen [Advil Liqui-Gel] 200 mg capsule 200 mg PO Q6H PRN (Reason: pain) omega 5-iji-phm-fish oil [Fish Oil] 60-90-500 mg capsule 1 cap PO QDAY fexofenadine-pseudoephedrine [Ava-D 24 Hour] 180-240 mg tablet extended release 24 hr 1 tab PO DAILY Other Ambulatory Orders: 12 Lead EKG (Routine) Timeframe: 20240725 Location: None Selected Ordered By: Dr. Nile Portillo Referrals / Follow Up: Espinoza Encarnacion MD [Primary Care Provider] - Disposition Disposition (needs filled in before D/C Order can be placed): Home, Self Care
--- NOTE | 2024-08-08 08:58 | POSTOPAN2_ITS ---
Anesthesia Postop Eval I Sum Postop Eval Completion status Anesthesia document: Postop Eval 1 completed: Yes Anesthesia Postop Eval I Summary Anesthesia Postop Eval I Summary: Anesthesia Postop Eval I: Assessment Summary Airway patent Yes 08/08/24 08:34 AIRPORT OPERATIONS DUTY [email or web address] Spontaneous unlabored Yes 08/08/24 08:34 AIRPORT OPERATIONS DUTY MANAGER.[email or web address] respirations Mental status nausea No 08/08/24 08:34 AIRPORT OPERATIONS DUTY MANAGER.[email or web address] Vomiting No 08/08/24 08:34 AIRPORT OPERATIONS DUTY MANAGER.[email or web address] Anesthesia Postop Eval I: Fluid Summary Crystalloid volume administer 900 08/08/24 08:34 AIRPORT OPERATIONS DUTY MANAGER.[email or web address] (ml) Colloids volume administered ( ml) Blood Product volume administered (ml) Total IV fluid infused 900 08/08/24 08:34 AIRPORT OPERATIONS DUTY MANAGER.[email or web address] Anesthesia Postop Eval I: Summary Notes Anesthesia Complication No 08/08/24 08:34 AIRPORT OPERATIONS DUTY MANAGER.[email or web address] Anesthesia Complication Comment: Post-operative progress note Anesthesia: Postop Eval II Evaluation Mental status: Awake Pain Level: 0 nausea: No Vomiting: No
--- NOTE | 2024-08-08 08:58 | PCM.POSTANE2 ---
Anesthesia Postop Eval I Sum Postop Eval Completion status Anesthesia document: Postop Eval 1 completed: Yes Anesthesia Postop Eval I Summary Anesthesia Postop Eval I Summary: Anesthesia Postop Eval I: Assessment Summary Airway patent Yes 08/08/24 08:34 MANAGER STRATEGIC DEVELOPMENT.[email or web address] Spontaneous unlabored Yes 08/08/24 08:34 MANAGER STRATEGIC DEVELOPMENT.PKEL respirations Mental status nausea No 08/08/24 08:34 MANAGER STRATEGIC DEVELOPMENT.[email or web address] Vomiting No 08/08/24 08:34 MANAGER STRATEGIC DEVELOPMENT.[email or web address] Anesthesia Postop Eval I: Fluid Summary Crystalloid volume administer 900 08/08/24 08:34 MANAGER STRATEGIC DEVELOPMENT.PKEL (ml) Colloids volume administered ( ml) Blood Product volume administered (ml) Total IV fluid infused 900 08/08/24 08:34 MANAGER STRATEGIC DEVELOPMENT.PKEL Anesthesia Postop Eval I: Summary Notes Anesthesia Complication No 08/08/24 08:34 MANAGER STRATEGIC DEVELOPMENT.PKEL Anesthesia Complication Comment: Post-operative progress note Anesthesia: Postop Eval II Evaluation Mental status: Awake Pain Level: 0 nausea: No Vomiting: No
[2024-08-08] MEDS: Tamsulosin HCl 0.4 MG Capsule PO (09:59)
== END 2024-08-08 10:45 | disposition home or self-care (01) ==
LOC: SDC 05:58 → AC 05:58
PROVIDERS: PCP Family Medicine; Referring Provider Surgery; Visit Provider Surgery
PROC: (CPT 49505; principal; 2024-08-08 07:15)
DX: K40.90 Unilateral inguinal hernia, without obstruction or gangrene, not specified as recurrent (principal)
CPT/HCPCS: 49505; 00830; 88302; 93005; C1781; J2405